=== PATIENT | male | born 1945 | race Caucasian/White ===

== ENCOUNTER 2023-06-18 17:33 | Observation (INO) ==
[2023-06-18 19:36] LABS: Hematocrit 24.2 % (38-53); Hemoglobin 8.3 g/dL (13.2-16.3); Mean Corpuscular Hemoglobin 31.5 pg (27-33); Mean Corpuscular Hgb Conc 34.1 g/dL (31-36); Mean Corpuscular Volume 92.6 fL (80-97); Mean Platelet Volume 6.8 fL (7.5-11.2); Platelet Count 173 10^3/uL (150-450); Red Blood Count 2.62 10^6/uL (4.06-5.63); White Blood Count 1.5 10^3/uL (3.6-10.2)
[2023-06-18 19:46] LABS: INR 1.25 (0.83-1.13)
[2023-06-18 19:56] LABS: C Reactive Protein 162.03 mg/L (<8.01); Calcium 9.6 mg/dL (8.6-10.3); Creatinine, Serum 1.33 mg/dL (0.67-1.17); Globulin 2.9 g/dL (2-4); Phosphorus 3.2 mg/dL (2.5-5.0); Potassium 4.5 mmol/L (3.5-5.0); Total Bilirubin 0.7 mg/dL (0.2-1.0); Total Protein 5.9 g/dL (6.4-8.9); eGFR CKD-EPI 54.7 (>60)
[2023-06-18 20:13] LABS: Anisocytosis 1+
[2023-06-18 20:23] LABS: ABS Lymphocytes 0.4 10^3/uL (1.0-4.8); ABS Monocytes 0.1 10^3/uL (0.0-1.1); ABS Neutrophils 0.9 10^3/uL (1.5-7.6); ABS Nucleated RBC 0.01 10^3/ul; Eosinophil % 0.1 %; Lymphocyte % 28.7 %; Nucleated Red Blood Cells % 0.4 %/100WBC (0.0-0.8)
[2023-06-18 21:18] LABS: High Sensitivity Troponin 1 Hr 22 pg/mL (<20)
[2023-06-18] MEDS ORDERED: Albuterol/Ipratropium NEB.SOL (2.5/0.5 MG) 3 ML NEB.SOLN INH PRN (23:08)
[2023-06-19] MEDS: Enoxaparin 40 MG/0.4 ML SYR SUBCUT SCH ×2 (00:39→21:08)
[2023-06-19] MEDS: cefTRIAXone 1 gm/50 mL D5W 1 GM/50 ML BAG IV SCH ×2 (00:48→23:39)
[2023-06-19] MEDS: Azithromycin 500 mg/250 ml NS 500 MG/250 ML BAG IVPB SCH (01:40)
[2023-06-19 01:47] LABS: Urine Appearance Clear; Urine Bilirubin Negative (Negative); Urine Blood Negative (Negative); Urine Color Amber; Urine Glucose Negative (Negative); Urine Ketones Negative (Negative); Urine Nitrite Negative (Negative); Urine Protein 2+(100 mg/dL) (Negative); Urine Specific Gravity 1.016 (1.002-1.030); Urine Urobilinogen Negative (Negative)
[2023-06-19 01:59] LABS: Urine Bacteria Absent (Absent); Urine Red Blood Cell Absent (Absent); Urine Squamous Epithelial Cell Present (Absent); Urine White Blood Cell Absent (Absent)
[2023-06-19 07:17] LABS: ABS Lymphocytes 0.2 10^3/uL (1.0-4.8); ABS Monocytes 0.2 10^3/uL (0.0-1.1); ABS Neutrophils 1.5 10^3/uL (1.5-7.6); ABS Nucleated RBC 0.01 10^3/ul; Eosinophil % 0.1 %; Hematocrit 21.8 % (38-53); Hemoglobin 7.5 g/dL (13.2-16.3); Lymphocyte % 10.5 %; Mean Corpuscular Hemoglobin 31.7 pg (27-33); Mean Corpuscular Hgb Conc 34.2 g/dL (31-36); Mean Corpuscular Volume 92.7 fL (80-97); Mean Platelet Volume 6.7 fL (7.5-11.2); Nucleated Red Blood Cells % 0.3 %/100WBC (0.0-0.8); Platelet Count 156 10^3/uL (150-450); Red Blood Count 2.35 10^6/uL (4.06-5.63); Red Cell Distribution Width 18.6 % (12-17); White Blood Count 1.8 10^3/uL (3.6-10.2)
[2023-06-19 07:49] LABS: Creatinine, Serum 1.36 mg/dL (0.67-1.17); Potassium 4.4 mmol/L (3.5-5.0); eGFR CKD-EPI 53.3 (>60)
[2023-06-19] MEDS: CMCS: FLUTICAS/UMECLI/VILANT 100-62.5-25 MDI (NF) INH SCH (08:59)
[2023-06-19] MEDS ORDERED: Influenza vaccine *QUAD* *2023-24* 0.5 ML SYRINGE IM ONE (09:00)
[2023-06-19] MEDS ORDERED: Albuterol/Ipratropium NEB.SOL (2.5/0.5 MG) 3 ML NEB.SOLN INH PRN (12:00)
[2023-06-19] MEDS ORDERED: Iodixanol (CONTRAST) 320 MG/ML 100 ML SDV IV ONE (15:08)
[2023-06-20] MEDS: Azithromycin 500 mg/250 ml NS 500 MG/250 ML BAG IVPB SCH (00:10)
[2023-06-20] MEDS: CMCS: FLUTICAS/UMECLI/VILANT 100-62.5-25 MDI (NF) INH SCH (08:19)
[2023-06-20 09:27] LABS: Anion Gap 9 mmol/L (2-16); Blood Urea Nitrogen 26 mg/dL (6-24); CO2 Carbon Dioxide 29 mmol/L (22-32); Calcium 8.4 mg/dL (8.6-10.3); Chloride 93 mmol/L (101-111); Creatinine, Serum 1.15 mg/dL (0.67-1.17); Glucose 103 mg/dL (70-100); Sodium 131 mmol/L (135-145); eGFR CKD-EPI 65.1 (>60)
[2023-06-20 10:25] VITALS: BP 108/38
[2023-06-20 10:39] LABS: ABS Lymphocytes 0.5 10^3/uL (1.0-4.8); ABS Monocytes 0.3 10^3/uL (0.0-1.1); ABS Neutrophils 1.6 10^3/uL (1.5-7.6); Eosinophil % 0.8 %; Hematocrit 23.7 % (38-53); Hemoglobin 7.9 g/dL (13.2-16.3); Lymphocyte % 22.1 %; Mean Corpuscular Hemoglobin 31.2 pg (27-33); Mean Corpuscular Hgb Conc 33.5 g/dL (31-36); Mean Corpuscular Volume 93.2 fL (80-97); Mean Platelet Volume 6.9 fL (7.5-11.2); Platelet Count 189 10^3/uL (150-450); Red Blood Count 2.54 10^6/uL (4.06-5.63); Red Cell Distribution Width 19.3 % (12-17); White Blood Count 2.4 10^3/uL (3.6-10.2)
[2023-06-20 14:41] LABS: Tacrolimus 3.2 ng/mL
== END 2023-06-20 13:30 | disposition home or self-care (01) ==
LOC: ED 17:33 → EDHOLD 17:33 → SUATTDRO 21:02 → SSU 21:20
PROVIDERS: ADMIT Internal Medicine; ATTEND Student in an Organized Health Care Education/Training Program